=== PATIENT | female | born 1945 | race Hispanic/Latino ===

== ENCOUNTER → 2024-01-15 | Outpatient (CLI) | payer OTHER | END | disposition home or self-care (01) | LOC: RAH 13:05 | PROVIDERS: ATTEND Internal Medicine Cardiovascular Disease | DX: Z13.6 Encounter for screening for cardiovascular disorders (principal) | CPT/HCPCS: 75571 ==

== ENCOUNTER → 2025-03-29 | Outpatient (CLI) | payer OTHER ==
[~2025-03-29] MED LIST: IOHEXOL-350 50ML VIAL IV ONE
--- NOTE | 2025-03-29 14:09 | HMCIMG ---
EXAM: CT Head with and without Intravenous Contrast. CLINICAL HISTORY: unspecified headache, dizziness and giddiness TECHNIQUE: Axial computed tomography images of the head/brain with and without intravenous contrast. CONTRAST: With intravenous contrast. COMPARISON: None provided. FINDINGS: BRAIN No evidence of acute hemorrhage. No mass lesion. No abnormal enhancement. No CT evidence for acute territorial infarct. No midline shift or extra-axial collections. Mild global atrophy Small 3 mm chronic appearing intra-axial calcification left insular cortex. 5 mm chronic appearing intra-axial calcification right frontal lobe medial Mild to moderate calcific atherosclerosis cavernous portions of the internal carotid arteriesNo abnormal enhancement VENTRICLES: No hydrocephalus. ORBITS: The orbits are unremarkable. SINUSES AND MASTOIDS: The paranasal sinuses and mastoid air cells are clear. BONES: No fracture. IMPRESSION: 1. No acute intracranial findings. 2. Mild global brain atrophy. 3. Small chronic intra-axial calcifications in left insular cortex and right frontal lobe. 4. 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 /[place]
== END | disposition home or self-care (01) ==
LOC: RAH 12:42
PROVIDERS: ATTEND Internal Medicine
DX: G31.9 Degenerative disease of nervous system, unspecified (principal); I65.23 Occlusion and stenosis of bilateral carotid arteries; R51.9 Headache, unspecified; R42 Dizziness and giddiness
CPT/HCPCS: 70470; Q9967